=== PATIENT | female | born 1980 ===

== ENCOUNTER 2024-12-03 08:55 | Outpatient (AMB) | payer OTHER, SELFPAY ==
[2024-12-03 08:58] VITALS: BP 138/80; PULSE 98; RESP 16; TEMP 36.2; O2SAT 96; BMI 39.5
--- NOTE | 2024-12-03 08:58 | GYNCLNT_ITS ---
Vital Signs 12/03/24 08:58 Height 1.65 m Height Method Stated Weight 107.728 kg Weight Measurement Method Standing Scale BMI 39.5 BP 138/80 H Blood Pressure Source Automatic Cuff Blood Pressure Location Left Upper Arm Position Sitting Respiration 16 Pulse 98 Pulse Source Monitor Temp 97.2 F Temp Source Oral Pulse Oximetry (%) 96 Oxygen Delivery Method Room Air Allergies/Home Meds Allergies & Medications Allergies No Known Allergies Allergy (Verified 12/03/24 09:00) Medication Reconciliation Unobtainable 12/03/24 [History Confirmed 12/03/24] Intake Visit Data Collection New Patient or Established: New Patient (never been to [facility]) Reason for Visit:: Annual wellness exam Seen by Clinical Staff ONLY (RN/MA): No Bicycle Mechanic Required: No Do You Feel Safe at Home: Yes Authorities Contacted: N/A PCP or OBGYN visit in last 3 months: No Hx Now: No Are you currently on any form of Control: No Last menstrual period: 11/24/24 Pain Present Currently: No Pain Scale Used: Paz-Galdamez/Numerical Pain scale:: 0 Smoking Status Smoking Status: Never smoker Doctor Of Nurse Anesthesia Practice history Doctor Of Nurse Anesthesia Practice History Menstrual regularity: regular Flow: normal Monthly: Yes Age at menarche: 14 Menopausal: No Currently sexually active: Yes Questionnaires Covid-19 Vaccine Questionnaire Has patient been vacinated for Covid-19 Have you been vacinated for Covid-19: No PHQ-9 PHQ-2 Over the last 2 weeks, how often have you been bothered by any of the following problems? 1. Little interest or pleasure in doing things: not at all 2. Feeling down, depressed, or hopeless: not at all Total score: 0 PHQ-9 3. Trouble falling or staying asleep, or sleeping too much: Not at all 4. Feeling tired or having little energy: Not at all 5. Poor appetite or overeating: Not at all 6. Feeling bad about yourself - or that you are a failure or have let yourself or your family down: Not at all 7. Trouble concentrating on things, such as reading the newspaper or watching television: Not at all 8. Moving or speaking so slowly that other people could have noticed? - Or the opposite - being so fidgety or restless that you have been moving around a lot more than usual: not at all 9. Thoughts that you would be better off or of hurting yourself in some way: Not at all Total score: 0 If you checked off any problems, how difficult have these problems made it for you to do your work, take care of things at home, or get along with other people?: not difficult at all Source: Developed by Drs. Woo Arenas, Sophy Hunt, Hector Palacio and colleagues, with an educational cassi from [email or web address]. Depression screen completed yes Social History Living Situation History Marital Status: Lives With: Family Housing: House Housing Other:: Patient works outside the house. She has a 15-year-old a 6-year-old son Tobacco History Smoking Status: Never smoker Alcohol History Alcohol Intake: Never Domestic Abuse History Do You Feel Safe at Home: Yes Past Medical History Past Medical History Have you ever been diagnosed with any of the following: Neurological Problems Meningitis: No Epilepsy: No Migraine: No Cardiology Problems Cardiac Arrhythmia: No Atrial Fibrillation: No Heart Murmur: Yes (Patient has a heart murmur and aortic stenosis) Hypercholesterolemia: Yes (On a high cholesterol medication. Patient unsure of name. Taking twice da) Deep Vein Thrombosis: No Hypertension: Yes (On Bystolic 10 mg twice daily) Respiratory Problems Asthma: No Pulmonary Embolism: No Sleep Apnea: No Stomache/Intestinal Problems Celiac Disease: No Gall Bladder Disease: No Gastroesophageal Reflux Disease: No Obesity: Yes Genital/Urinary Problems Renal Disease: No Kidney Stones: No Reproductive Problems Breast Cancer: No Endometriosis: No Fibroids: No Genital Herpes: No Gonorrhea: No Pelvic Inflammatory Disease: No Polycystic Ovarian Syndrome: No Syphilis: Yes (Patient's status post vaginal delivery x 2 six and 15 years ago) Musculoskeletal Problems Arthritis: No Rheumatoid Arthritis: No Head,Eye,Nose,Throat Problems Glaucoma: No Endocrine Problems Diabetes Mellitus Type 2: No Hyperthyroidism: No Hypothyroidism: No Systemic Lupus Erythematosus: No Blood Problems Anemia: No Clotting Problems: No Psychologic Problems Anxiety: Yes Other Problems Hospitalization: Yes (For childbirth x 2) Blood Transfusions: No Surgical History Appendectomy: No Bariatric Surgery: No Breast Surgery: No Cholecystectomy: No Additional Surgical History: Patient sees Dr. Encinas cardiology and has echoes yearly for aortic stenosis History of Present Illness HPI Narrative Patient is a very pleasant 44-year-old -0-0-2 who I used to see in [place] who presents for an annual exam. She released her records to herself but I do not have those today she states she has been seeing me for 15 years and has 100 pages of records. She did see her primary care Rick Olivarez recently and has some lab work scheduled today she reminds me every year she needs a mammogram with a breast ultrasound because she has very dense breasts. She does not desire control they are using the rhythm method for contraception. Patient states that since I have seen her last she has been diagnosed with a heart murmur and an echo has revealed aortic stenosis. Dr. Doan is performing yearly echocardiograms on her. 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 Review of Systems Review of Systems Narrative Review of Systems: Patient denies heavy bleeding any bleeding between cycles. States her cycles are regular monthly. She denies dyspareunia. They are using the rhythm method for contraception. No bladder complaints no hot flashes no night sweats Exam General Limitations: no limitations General Appearance: alert, in no apparent distress, comfortable, cooperative, healthy appearing and well groomed Neck Neck exam: Present normal inspection, full ROM and trachea midline Chest Chest inspection: Present normal inspection and symmetric chest wall rise Exp Chest Breast: right: mass (Multiple cysts RUQ right breast) and bilateral: other (Bilateral dense and Fibrocystic breasts) Resp Respiratory exam: Present normal lung sounds bilaterally Card Cardiovascular exam: Present regular rate, normal rhythm and normal heart sounds Abdominal Abdominal exam: Present soft and normal bowel sounds External exam: Present normal external exam Speculum exam: Present normal speculum exam Bimanual exam: Present normal bimanual exam Extremities Extremities exam: Present normal inspection and full ROM Psych Psychiatric exam: Present normal affect and normal mood Skin Skin exam: Present warm, dry, intact and normal color Assessment & Plan Diagnosis / Problem List (1) Women's annual routine gynecological examination: Status: Acute Plan: Pap with co typing to HPV performed. Breast ultrasound and mammogram ordered for [place] for this February. Patient declines control. (2) Aortic stenosis: Status: Acute Qualifiers: Cardiac valve disease etiology: etiology unspecified Qualified Code(s): I35.0 - Nonrheumatic aortic (valve) stenosis Plan: Dr. Encinas cardiology following. Yearly echoes. (3) Hypertension: Status: Acute Qualifiers: Hypertension type: primary hypertension Qualified Code(s): I10 - Essential (primary) hypertension Plan: Primary care following. On Bystolic. (4) Hypercholesteremia: Status: Acute Plan: Primary care following. On medication. Weight loss encouraged. Additional Plan Follow Up: 1 Year Office Procedures OB Clinic LOC & Office Proc's Nursing/Assessment Patient Status: Initial/New Patient OB Clinic Nursing Assessment: BP Monitoring, Medication Reconciliation, Update PMH in EMR and Vital Signs OB Clinic Coordination of Care: Consent,records obtained, informed consent, Lab and Imaging orders and Staff clarify orders Miscellaneous Interventions: Pelvic/Pap Smear Set up New Patient Charge New Patient Point Assignment: 1094 New Patient Point Charge: AIRPORT DUTY MANAGER Level 5 ([id number]) In Clinic Procedures Pap Smear: Yes FOLDING MACHINE TENDER: Papsmear Pap Smear Procedure Chaparone in room during procedure?: No Pre-op diagnosis general: Annual wellness exam Post-op diagnosis procedure note: Same Procedure Notes:: Pap with cotesting HPV performed. Papsmear completed: yes
== END 2024-12-03 09:45 | disposition home or self-care (01) ==
LOC: HODSOBC 08:55
PROVIDERS: PCP Family Medicine; Referring Provider Family Medicine; Supervising Provider Obstetrics & Gynecology; Visit Provider Obstetrics & Gynecology
DX: Z01.419 Encounter for gynecological examination (general) (routine) without abnormal findings (principal); Z11.51 Encounter for screening for human papillomavirus (HPV); I35.0 Nonrheumatic aortic (valve) stenosis; I10 Essential (primary) hypertension; E78.00 Pure hypercholesterolemia, unspecified
CPT/HCPCS: 99205; Q0091; G0463